=== PATIENT | female | born 1965 | race Caucasian/White ===

== ENCOUNTER → 2024-03-07 11:15 | Outpatient (REF) | payer BC, SELFPAY | LOC: HWWDC 11:15 | PROVIDERS: ATTENDING PHYSICIAN Family Medicine | DX: Z12.31 Encounter for screening mammogram for malignant neoplasm of breast (principal) | CPT/HCPCS: 77063; 77067 ==

== ENCOUNTER 2025-08-19 23:48 | Emergency (ER) | payer BC, SELFPAY ==
[2025-08-20 00:09] VITALS: BP 153/92
--- NOTE | 2025-08-20 00:30 | ED.GENMED ---
History of Present Illness
General
Chief Complaint: Eye Problems
Source: patient
Exam Limitations: none
Time Seen by Provider: 08/20/25 00:25
Nursing documentation reviewed up to this point in time: agreed with
History of Present Illness
History of Present Illness:
Note:
CHIEF COMPLAINT(S)
Right eye discomfort following laser surgery for glaucoma.
HISTORY OF PRESENT ILLNESS
The patient is a 60-year-old female with pmh of glaucoma presents to the ER today with concerns of right eye tearing and foreign body sensation. She reports that he underwent laser surgery for glaucoma in the right eye approximately at 4:30 PM
yesterday. She reports that post-operatively, the eye felt numb, and upon waking, she experienced a sensation simran to something scratching her eye. The surgery was performed to prevent the progression of glaucoma, and was planned to ensure control
over intraocular pressure. Only the right eye was treated in this instance but she is scheduled to have the left eye done.
The patient has not been particularly sensitive to light. The patient mentions being given a prescription for medication, possibly NSAID eye drops, from Dr. Valle. 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
[facility] would likely not have this. She denies any injury to the eye after procedure, denies scratching the eye. She denies dizziness, headache.
MEDICATIONS
Potential prescription for pain relief post-surgery, as stated: possibly hydrocodone (verification required).
PHYSICAL EXAM
General: Patient is well appearing and in no acute distress; non-toxic
Skin: Warm and dry, no rashes or lesions
Head: Normocephalic, atraumatic
Eyes: No sclera injection noted bilaterally, increased tearing in right eye.
Peripheral visual tubbs intact.
Fluorescein staining reveals 3 mm by 2mm corneal abrasion no globe rupture no evidence of foreign body
Cardiac: Regular rate and rhythm, no murmurs
Pulm: Normal respiratory effort, no wheezes, rales, or rhonchi
Neuro: CN II-XII intact, no focal neurologic deficits.
Psychiatric: Appropriate mood and affect.
PLAN
- Verify prescription details with Dr. Valle and the pharmacy.
- Inspect the right eye further for potential corneal abrasions.
- Symptomatic control
DIFFERENTIAL DIAGNOSIS
The Differential Diagnosis includes, in no particular order and is not limited to:
- Post-operative eye discomfort due to laser treatment
- Corneal abrasion
- Increased intraocular pressure
- Foreign body sensation due to surgical intervention
- Infection (unlikely without redness but to be ruled out)
- Dry eye syndrome
- Inadequate lubrication post-surgery
- Glaucoma-related pressure changes
- Medication side effect
- Surgical complication such as laser-related tissue reaction
Disposition:
SUMMARY OF ENCOUNTER
The patient presented to the emergency department with discomfort in the right eye following laser surgery for glaucoma. Examination revealed a corneal abrasion likely related to the surgical procedure. Fluorescein staining confirmed the presence of
an approximately 2-millimeter corneal abrasion. Treatment included administration of a numbing agent, tetracaine, which significantly improved the patients symptoms. There was no evidence of a globe rupture or foreign body upon examination.
MANAGEMENT OF THE PATIENTS CARE WAS DISCUSSED WITH
Discussion with Dr. Rowe, the patients artificial stone setter who performed the procedure, confirmed the arrangement for the patient to be seen by him the next morning at 7:45 am for follow up and is aware of plan.
PLAN
An ophthalmic ointment will be started to aid in the healing of the corneal abrasion. Further follow-up with the artificial stone setter is planned for tomorrow.
PATIENT EDUCATION AND COUNSELING
The patient was informed about the presence of a corneal abrasion and its potential link to the recent surgical procedure. The nature of the abrasion, treatment options, and the importance of follow-up care were discussed.
FOLLOW-UP INSTRUCTIONS
The patient is scheduled to see her artificial stone setter, Dr. Rowe, tomorrow morning at 7:45.
MEDICATION RECONCILIATION
Proparacaine was administered to alleviate discomfort. An ophthalmic ointment will be prescribed for continued care.
MEDICAL DECISION MAKING
- Complexity of Data Reviewed: Chronic conditions affecting care include glaucoma. Differential diagnosis considered: post-operative eye discomfort, corneal abrasion, increased intraocular pressure, foreign body sensation, infection, dry eye
syndrome, inadequate lubrication, glaucoma-related pressure changes, medication side effect, laser-related tissue reaction.
- Data: Category 1: Exam findings reviewed. Category 3: Management discussed with Dr. Rowe.
- Risk: Prescription medication was prescribed.
DIAGNOSIS
- Corneal abrasion, right eye (ICD-10: S05.01XA)
- Post-operative discomfort following laser surgery for glaucoma (ICD-10: H59.89)
Past History
Past History
ED Past Medical History: None
ED Past Surgical History: Orthopedic
Social History
Tobacco: Non-smoker
Living: with family
Employment: Employed
Family History
Family History: Unable to obtain
Review of Systems
Review of Systems
All Other Systems: ROS reviewed and negative except as documented in HPI and ROS
Phy Exam
Physical Exam
Physical Exam:
see hpi
Course
Orders/Labs/Results
Orders:
Orders
08/20/25 00:44
Visual Acuity- Treatment ONCE
08/20/25 02:00
Erythromycin (Ilotycin) [Erythromycin 0.5% Ophthalmic Ointment] See Dose Instructions OPHTH NOW STA
Vital Signs
Initial and Last Documented VS:
Initial Vital Signs
Temp Pulse Resp BP Pulse Ox
97.6 F 108 20 153/92 99
08/20/25 00:09 08/20/25 00:09 08/20/25 00:09 08/20/25 00:09 08/20/25 00:09
Last Documented Vital Signs
Temp Pulse Resp BP Pulse Ox
97.6 F 78 20 153/92 99
08/20/25 00:09 08/20/25 02:29 08/20/25 00:09 08/20/25 00:09 08/20/25 02:29
*Pulse Oximetry
SaO2: 99
Oxygen Mode of Delivery: Room air
Patient hypoxic: no
*Critical Care Note
Total Time (30-74mins, 75-104mins- exclusive of procedures): Not Applicable
ED Attending Note
-
Portions of this chart may have been created with voice recognition software.� Occasional wrong word or��sound alike� substitutions may have occurred due to the inherent limitations of voice recognition software.
Discharge Plan
Departure
Patient Disposition: Home (Routine Discharge)
Date of Disposition: 08/20/25
Time of Disposition: 02:15
Patient with high blood pressure during this ER visit?: Yes
Condition: Good
Discharge Problem:
Corneal abrasion, right
Instructions: Corneal Abrasion (DC), BLOOD PRESSURE
Prescriptions:
No Action
ibuprofen 600 MG tablet
600 mg PO Q6HPRN PRN (Reason: pain) Qty: 14 0RF
cyclobenzaprine 10 MG tablet
10 mg PO TIDPRN PRN (Reason: back muscle spasms) Qty: 15 0RF
ibuprofen 600 MG tablet
600 mg PO TIDPRN PRN (Reason: Back pain) Qty: 30 0RF
Referrals:
Marco Glover MD [Family Provider, Family Practice]
Activity Restrictions/Additional Instructions:
Please report to Dr. Valle's office at 7:45 AM. Please instill the ointment to the right eye 4 times daily for 5 days.
Please continue to monitor your symptoms.
PLEASE RETURN TO ER SHOULD YOU DEVELOP VISUAL LOSS, FEVERS OR CHILLS, PAIN OR DRAINAGE FROM THE EYE, CHEST PAIN, SHORTNESS OF BREATH, OR ANY OTHER SIGNS OR SYMPTOMS RECENTLY.
Interventions
Interventions:
*Risk Screen - Suicide Last Done: 08/20/25 00:09
*General Assessment Last Done: 08/20/25 00:09
*Neglect/Abuse Screening Last Done: 08/20/25 00:09
*ED- Fall Risk Assessment Last Done: 08/20/25 00:09
*ED COVID-19 Vaccine History Last Done: 08/20/25 00:09
*ED Influenza Vaccine History Last Done: 08/20/25 00:09
*Nursing Disposition Last Done: 08/20/25 02:29
Discharge Date and Time
Discharge Date/Time: 08/20/25 02:29
Print Language: IRAQI
[2025-08-20 00:38] VITALS: BMI 22.1
[2025-08-20] MEDS: ERYTHROMYCIN 0.5% OPHTHALMIC OINTMENT 1 APPLIC OPHTH (02:13)
== END 2025-08-20 02:29 | disposition home or self-care (01) ==
LOC: EMR 23:48
PROVIDERS: EMERGENCY PHYSICIAN Emergency Medicine; FAMILY PHYSICIAN Family Medicine
DX: S05.01XA Injury of conjunctiva and corneal abrasion without foreign body, right eye, initial encounter (principal); X58.XXXA Exposure to other specified factors, initial encounter; H40.9 Unspecified glaucoma; Z98.890 Other specified postprocedural states
CPT/HCPCS: 99283

== ENCOUNTER → 2025-09-16 06:55 | Outpatient (REF) | payer BC, SELFPAY | LOC: HWWDC 06:55 | PROVIDERS: ATTENDING PHYSICIAN Family Medicine | DX: Z12.31 Encounter for screening mammogram for malignant neoplasm of breast (principal) | CPT/HCPCS: 77063; 77067 ==